=== PATIENT | male | born 1980 | race Caucasian/White ===

== ENCOUNTER 2024-02-28 02:07 | Inpatient (IN) | payer MEDICAID, OTHER ==
[~2024-02-28] VITALS: Ht 188 cm; Wt 83.1 kg
[2024-02-28 03:07] LABS: COVID AG,FIA SOURCE NASAL SWAB
[2024-02-28 03:08] LABS: BASOPHILS % (AUTO) 0.6 % (0.0-2.0); EOSINOPHILS % (AUTO) 0.7 % (1.0-6.0); HEMATOCRIT 43.9 % (41-53); LYMPHOCYTES # (AUTO) 1.6 K/uL (1.0-4.8); LYMPHOCYTES % (AUTO) 14.1 % (22.0-44.0); MEAN CORPUSCULAR HEMOGLOBIN 38.7 pg (26.0-34.0); MEAN CORPUSCULAR HGB CONC 34.3 G/dL (31.0-37.0); MEAN CORPUSCULAR VOLUME 113 fL (80-100); MONOCYTES # (AUTO) 1.5 K/uL (0.1-1.0); MONOCYTES % (AUTO) 12.5 % (2.0-9.0); NEUTROPHILS # (AUTO) 8.4 K/uL (1.8-7.7); NEUTROPHILS % (AUTO) 72.1 % (40.0-70.0); PLATELET COUNT (AUTO) 401 K/uL (150-450); RED BLOOD CELL COUNT(AUTO) 3.88 MIL/uL (4.50-5.90); RED CELL DISTRIBUTION WIDTH 14.7 % (11.5-14.5); WHITE BLOOD COUNT (AUTO) 11.6 K/uL (4.5-11.0)
[2024-02-28 03:18] LABS: APPEARANCE,URINE CLEAR (CLEAR); BILIRUBIN,URINE NEGATIVE (NEGATIVE); COLOR,URINE YELLOW (YELLOW); GLUCOSE, URINE (UA) NEGATIVE (NEGATIVE); KETONES,URINE TRACE mg/dL (NEGATIVE); LEUKOCYTE ESTERASE ,URINE NEGATIVE (NEGATIVE); NITRATE,URINE NEGATIVE (NEGATIVE); OCCULT BLOOD,URINE TRACE (NEGATIVE); PROTEIN,URINE 100-200,SEE CONFIRM mg/dL (NEGATIVE); SPECIFIC GRAVITIY, URINE 1.033 (1.003-1.030)
[2024-02-28 03:18] LABS: ANION GAP 13 mmol/L (8-16); CALCIUM, TOTAL 8.9 mg/dL (8.8-10.5); CARBON DIOXIDE 27 mmol/L (22-29); CHLORIDE 105 mmol/L (98-107); CREATININE 1.66 mg/dL (0.60-1.30); GLOMERULAR FILTR. RATE CALC 46 mL/min (>60); GLUCOSE,RANDOM 102 mg/dL (70-110); POTASSIUM 3.3 mmol/L (3.5-5.1); SODIUM SERUM 145 mmol/L (136-145); UREA NITROGEN, BLOOD 33 mg/dL (7-18)
[2024-02-28 03:25] LABS: ALCOHOL, URINE DRUG SCREEN NEGATIVE (NEGATIVE); AMPHET/METH SCREEN,URINE POSITIVE (NEGATIVE); BARBITURATE SCREEN, URINE NEGATIVE (NEGATIVE); BENZODIAZEPINES SCREEN,URINE NEGATIVE (NEGATIVE); CANNABINOID SCREEN,URINE NEGATIVE (NEGATIVE); COCAINE SCREEN,URINE NEGATIVE (NEGATIVE); METHADONE SCREEN, URINE NEGATIVE (NEGATIVE); OPIATE SCREEN,URINE NEGATIVE (NEGATIVE); PHENCYCLIDINE SCREEN,URINE NEGATIVE (NEGATIVE)
[2024-02-28 03:28] LABS: RBC MORPHOLOGY COMMENT ABNORMAL RBC MORPH
[2024-02-28 03:36] LABS: SARS-COV2 (COVID) ANTIGEN,FIA Negative (Negative)
[2024-02-28 03:37] LABS: ALCOHOL, BLOOD (SERUM) < 3 mg/dL (0-10)
[2024-02-28 03:37] LABS: SULFOSALICYLIC ACID,URINE 2+ (Negative)
[2024-02-28 03:38] LABS: BACTERIA,URINE None Seen /HPF (None Seen); RBC,URINE 0-2 /HPF (0-2); SQUAMOUS EPITHELIAL CELL,UR Few /LPF (None Seen); WBC,URINE None Seen /HPF (0-5)
[2024-02-28] MEDS: LORazepam 2 MG TABLET PO PRN (09:36)
[2024-02-28] MEDS: POTASSIUM CHLORIDE 20 MEQ ER TABLET PO ONE (13:19)
[2024-02-28] MEDS ORDERED: LEVO50TA11 PO (20:39)
[2024-02-28] MEDS ORDERED: HYDR500 PO (20:39)
[2024-02-28] MEDS ORDERED: RIVA20TA PO (20:39)
[2024-02-28] MEDS ORDERED: DULO-114 PO (20:39)
[2024-02-28] MEDS ORDERED: DIVA-153 PO (20:39)
[2024-02-28] MEDS: HALOPERIDOL 5 MG TABLET PO PRN (21:15)
[2024-02-28] MEDS: ZOLPIDEM TARTRATE 10 MG TABLET PO PRN (21:15)
[2024-02-29 01:24] VITALS: BP 127/83; PULSE 79; RESP 18; TEMP 97.7; O2SAT 97
[2024-02-29] MEDS ORDERED: MAGNESIUM HYDROXIDE SUSPENSION 30 ML UDCUP PO PRN (05:30)
[2024-02-29] MEDS ORDERED: ONDANSETRON 4 MG TABLET PO PRN (05:30)
[2024-02-29] MEDS ORDERED: GuaiFENesin/D-METHORPHAN [SUGAR-FREE] 200-20MG/10 ML SYRUP UDCUP PO PRN (05:30)
[2024-02-29] MEDS ORDERED: ACETAMINOPHEN 325 MG TABLET PO PRN (05:30)
[2024-02-29] MEDS ORDERED: PETROLATUM,WHITE 28 GM JELLY TP PRN (05:30)
[2024-02-29] MEDS ORDERED: CloNIDine HCL 0.1 MG TABLET PO PRN (05:30)
[2024-02-29] MEDS ORDERED: DOCUSATE SODIUM 100 MG CAPSULE PO PRN (05:30)
[2024-02-29] MEDS ORDERED: MAG HYDROX/ALUMINUM HYD/SIMETH ES 30 ML SUSPENSION UDCUP PO PRN (05:30)
[2024-02-29] MEDS ORDERED: ALBUTEROL SULFATE HFA 90 MCG/PUFF 8 GM INHALER IH PRN (05:30)
[2024-02-29] MEDS ORDERED: LOPERAMIDE HCL 2 MG CAPSULE PO PRN (05:30)
[2024-02-29] MEDS: LEVOTHYROXINE SODIUM 50 MCG TABLET PO SCH (06:45)
[2024-02-29] MEDS: RIVAROXABAN 20 MG TABLET PO SCH (08:53)
[2024-02-29] MEDS ORDERED: DULoxetine HCL 30 MG CAPSULE PO SCH (10:15)
[2024-02-29 11:19] VITALS: BP 122/79; PULSE 76; RESP 17; TEMP 98; O2SAT 96
[2024-02-29] MEDS: DIVALPROEX SODIUM 500 MG ER TABLET PO SCH (12:47)
[2024-02-29 21:31] VITALS: BP 121/68; PULSE 80; RESP 18; TEMP 97.5
[2024-03-01] MEDS: NICOTINE 14 MG/24 HOUR PATCH TD PRN (08:32)
[2024-03-01 08:45] LABS: HEMOGLOBIN A1C 4.8 % (3.8-5.6)
[2024-03-01 08:48] LABS: THYROID STIMULATING HORMONE 1.74 uIU/mL (0.36-3.74)
[2024-03-01 13:01] VITALS: BP 124/55; PULSE 68; RESP 18; TEMP 97.4; O2SAT 98
[2024-03-01 21:42] VITALS: RESP 18
[2024-03-02 08:49] VITALS: BP 114/70; PULSE 66; RESP 17; TEMP 99; O2SAT 98
[2024-03-02 21:25] VITALS: BP 105/60; PULSE 74; RESP 19; TEMP 98.6; O2SAT 96
[2024-03-03 09:31] VITALS: BP 103/63; PULSE 69; RESP 18; TEMP 97.8; O2SAT 96
[2024-03-03 20:15] VITALS: BP 130/85; PULSE 84; RESP 18; TEMP 97.9; O2SAT 98
[2024-03-04 09:18] VITALS: BP 110/76; PULSE 76; RESP 18; TEMP 97.7; O2SAT 98
[2024-03-04 21:28] VITALS: BP 129/85; PULSE 68; RESP 18; TEMP 98.9; O2SAT 97
[2024-03-05 09:37] VITALS: BP 118/76; PULSE 70; RESP 18; TEMP 97.4; O2SAT 97
== END 2024-03-05 10:15 | disposition home or self-care (01) | DRG 753 ==
LOC: EMS 02:07 → 3EC 02-29 02:48
PROVIDERS: ADMIT Psychiatry & Neurology Child & Adolescent Psychiatry; ATTEND Psychiatry & Neurology Child & Adolescent Psychiatry
PROC: GZHZZZZ Group Psychotherapy (ICD-10-PCS; principal; 2024-02-29)
PROC: GZ56ZZZ Individual Psychotherapy, Supportive (ICD-10-PCS; 2024-02-29)
DX: F31.5 Bipolar disorder, current episode depressed, severe, with psychotic features (principal); R45.851 Suicidal ideations; F15.10 Other stimulant abuse, uncomplicated; I10 Essential (primary) hypertension; Z20.822 Contact with and (suspected) exposure to COVID-19; F17.210 Nicotine dependence, cigarettes, uncomplicated; E03.9 Hypothyroidism, unspecified; D72.829 Elevated white blood cell count, unspecified; Z86.718 Personal history of other venous thrombosis and embolism; Z79.899 Other long term (current) drug therapy
CPT/HCPCS: 80048; 80061; 80164; 80307; 81001; 81002; 83036; 84132; 84443; 85025; 99285; G0480